=== PATIENT | female | born 1945 | race Caucasian/White ===

== ENCOUNTER 2019-09-26 16:04 | Emergency (ER) | payer MEDICARE ==
[~2019-09-26] VITALS: Ht 167.6 cm; Wt 78.4 kg
[~2019-09-26 16:04] MED LIST: CLIN-5 PO; FOLI1TAB16 PO; IBAN150T21 PO; LETR2.5T23 PO; LEVO75TA7 PO; LISI-600 PO; MELO-102 PO; METO100T7 PO; THI100T PO
[2019-09-26] MEDS ORDERED: IBUP-1986 PO (17:11)
[2019-09-26] MEDS ORDERED: GABA600T13 PO (17:11)
[2019-09-26] MEDS ORDERED: POTA10TA36 PO (17:11)
[2019-09-26] MEDS ORDERED: FURO-150 PO (17:11)
[2019-09-26 17:27] LABS: ALANINE AMINOTRANSFERASE 46 U/L (12-78); ALBUMIN 3.7 G/DL (3.4-5.0); ALBUMIN/GLOBULIN RATIO 1.1 (1.1-1.5); ALKALINE PHOSPHATASE 114 IU/L (46-116); ANION GAP 17 (8-16); ASPARTATE AMINO TRANSFERASE 94 U/L (10-37); BILIRUBIN,TOTAL 0.6 MG/DL (0.1-1.0); BLOOD UREA NITROGEN 11 MG/DL (7-18); CALCIUM 9.1 MG/DL (8.5-10.1); CHLORIDE 101 MMOL/L (99-107); CREATININE 0.92 MG/DL (0.40-0.90); GLUCOSE 76 MG/DL (70-104); SODIUM 140 MMOL/L (135-145); TOTAL CARBON DIOXIDE 21.8 MMOL/L (24-32); TOTAL PROTEIN 7.2 G/DL (6.4-8.2); eGFR 60 ML/MIN
[2019-09-26 17:39] LABS: ACETAMINOPHEN < 2.0 UG/ML (10-30)
[2019-09-26] MEDS ORDERED: thiamine 100mg/ml 2ml inj. IV ONE (17:45)
[2019-09-26] MEDS ORDERED: folic acid 1mg/0.2ml inj IV ONE (17:45)
[2019-09-26] MEDS ORDERED: normal saline 1000ML IV soln IVB ONE (17:45)
[2019-09-26 18:05] LABS: ETHANOL 0.299 GM/DL (0.0-0.010)
[2019-09-26 18:07] LABS: COLOR,URINE YELLOW (Yellow); GLUCOSE, URINE NEGATIVE (Neg); KETONES,URINE NEGATIVE (Neg); LEUKOCYTE ESTERASE ,URINE NEGATIVE (Neg); OCCULT BLOOD,URINE TRACE-INTACT (Neg); PROTEIN,URINE NEGATIVE (Neg); UROBILINOGEN,URINE 0.2 E.U/dL (0.2-1.0)
[2019-09-26] MEDS ORDERED: ondansetron 4mg rapidly disintigrating tab PO ONE (18:10)
[2019-09-26] MEDS ORDERED: HYDROcodone/acetaminophen 5mg/325mg tablet PO ONE (18:10)
[2019-09-26 18:13] LABS: CLARITY,URINE SLIGHTLY CLOUDY (Clear); UA COLLECTION TYPE STRAIGHT CATH
[2019-09-26 18:14] LABS: NITRITES, URINE POSITIVE (Neg)
[2019-09-26 18:15] LABS: BACTERIA,URINE 4+ /HPF (Neg); MUCUS STRANDS NONE SEEN /LPF (Neg); RBC,URINE 0-2 /HPF (0-2); SQUAMOUS EPITHELIAL CELL,UR FEW /LPF (FEW); WBC,URINE 0-4 /HPF (0-4)
[2019-09-26] MEDS ORDERED: IBUP-1984 PO (18:26)
[2019-09-26] MEDS ORDERED: TRAM50TA2 PO (18:26)
[2019-09-26] MEDS ORDERED: NITR100C6 PO (18:26)
[2019-09-26 18:47] LABS: BASOPHILS % (AUTO) 0.5 % (0-1); EOSINOPHILS % (AUTO) 0.7 % (0-6); HEMATOCRIT 37.1 % (35.0-45.0); HEMOGLOBIN 12.6 g/dl (12.0-16.0); LYMPHOCYTES # (AUTO) 1.1 X10'3 (1.1-4.8); LYMPHOCYTES % (AUTO) 16.9 % (21-51); MEAN CORPUSCULAR HEMOGLOBIN 36.3 PG (27.0-31.0); MEAN CORPUSCULAR HGB CONC 33.8 g/dL (33.0-36.5); MEAN CORPUSCULAR VOLUME 107.3 FL (78-98); MEAN PLATELET VOLUME 7.6 FL (7.4-10.4); MONOCYTES # (AUTO) 0.9 X10'3 (0-0.9); MONOCYTES % (AUTO) 14.7 % (2-12); NEUTROPHILS # (AUTO) 4.3 X10'3 (1.8-7.7); NEUTROPHILS % (AUTO) 67.2 % (42-75); PLATELET COUNT 166 X10'3 (140-440); RED BLOOD COUNT 3.46 X10'6 (4.20-5.60); RED CELL DISTRIBUTION WIDTH 14.2 % (11.5-14.5); WHITE BLOOD COUNT 6.4 X10'3 (4.5-11.0)
[2019-09-26 19:37] VITALS: BP 121/61
== END 2019-09-26 19:40 | disposition home or self-care (01) ==
LOC: ER 16:05
DX: S62.92XA Unspecified fracture of left hand, initial encounter for closed fracture (principal); F10.129 Alcohol abuse with intoxication, unspecified; N39.0 Urinary tract infection, site not specified; G62.9 Polyneuropathy, unspecified; R41.0 Disorientation, unspecified; Z85.3 Personal history of malignant neoplasm of breast; Z60.2 Problems related to living alone; Z88.0 Allergy status to penicillin; Z88.2 Allergy status to sulfonamides; Z88.6 Allergy status to analgesic agent; Z79.899 Other long term (current) drug therapy; Y90.0 Blood alcohol level of less than 20 mg/100 ml; W18.39XA Other fall on same level, initial encounter; Y93.89 Activity, other specified; Y92.89 Other specified places as the place of occurrence of the external cause; Y99.8 Other external cause status
CPT/HCPCS: 29125; 36415; 70450; 71045; 73110; 73130; 80053; 80320; 80329; 81001; 82140; 84443; 85025; 87077; 87088; 87186; 96361; 96374; 96375; 99284; J3411; J3490; J7030

== ENCOUNTER 2019-12-20 17:46 | Emergency (ER) | payer MEDICARE ==
[~2019-12-20] VITALS: Ht 167.6 cm; Wt 86.0 kg
[~2019-12-20 17:46] MED LIST changes: -CLIN-5 PO; -FOLI1TAB16 PO; +FURO-150 PO; +GABA600T13 PO; -IBAN150T21 PO; +IBUP-1986 PO; -LETR2.5T23 PO; -MELO-102 PO; +NITR100C6 PO; +POTA10TA36 PO; -THI100T PO
[2019-12-20] MEDS ORDERED: normal saline 1000ML IV soln IVB ONE (18:20)
[2019-12-20 18:39] LABS: BASOPHILS % (AUTO) 0.3 % (0-1); EOSINOPHILS % (AUTO) 0.1 % (0-6); HEMATOCRIT 36.4 % (35.0-45.0); HEMOGLOBIN 12.3 g/dl (12.0-16.0); LYMPHOCYTES # (AUTO) 0.7 X10'3 (1.1-4.8); LYMPHOCYTES % (AUTO) 12.9 % (21-51); MEAN CORPUSCULAR HEMOGLOBIN 34.4 PG (27.0-31.0); MEAN CORPUSCULAR HGB CONC 33.7 g/dL (33.0-36.5); MEAN CORPUSCULAR VOLUME 102.1 FL (78-98); MEAN PLATELET VOLUME 8.2 FL (7.4-10.4); MONOCYTES # (AUTO) 0.7 X10'3 (0-0.9); MONOCYTES % (AUTO) 12.7 % (2-12); PLATELET COUNT 127 X10'3 (140-440); RED BLOOD COUNT 3.56 X10'6 (4.20-5.60); WHITE BLOOD COUNT 5.4 X10'3 (4.5-11.0)
[2019-12-20 18:48] LABS: PARTIAL THROMBOPLASTIN TIME 23 SECONDS (22-32)
[2019-12-20 18:50] LABS: ALANINE AMINOTRANSFERASE 25 U/L (12-78); ALBUMIN 3.7 G/DL (3.4-5.0); ALKALINE PHOSPHATASE 94 IU/L (46-116); ANION GAP 18 (8-16); ASPARTATE AMINO TRANSFERASE 47 U/L (10-37); BILIRUBIN,TOTAL 0.7 MG/DL (0.1-1.0); BLOOD UREA NITROGEN 25 MG/DL (7-18); BUN/CREATININE RATIO 13.6 (6.6-38.0); CALCIUM 10.2 MG/DL (8.5-10.1); CHLORIDE 102 MMOL/L (99-107); CREATININE 1.84 MG/DL (0.40-0.90); ETHANOL < 0.010 GM/DL (0.0-0.010); GLUCOSE 117 MG/DL (70-104); POTASSIUM 3.2 MMOL/L (3.5-5.1); SODIUM 144 MMOL/L (135-145); TOTAL CARBON DIOXIDE 24.1 MMOL/L (24-32); TOTAL PROTEIN 7.3 G/DL (6.4-8.2); eGFR 27 ML/MIN
[2019-12-20] MEDS ORDERED: normal saline 1000ml 1,000 ML IV ONE (20:10)
--- NOTE | 2019-12-20 20:22 | NUR ---
PT TO CT
[2019-12-20] MEDS ORDERED: thiamine 100mg/ml 2ml inj. IV ONE (20:30)
--- NOTE | 2019-12-20 20:38 | NUR ---
PT ASKED IF SHE NEEDED TO VOID AND SHE SAID NOT YET.
[2019-12-20 20:44] LABS: CREATINE KINASE 180 U/L (26-192); TROPONIN I < 0.04 NG/ML (0.0-0.05)
--- NOTE | 2019-12-20 21:43 | NUR ---
TUCKED HER BACK TO BED AFTER SHE GOT UP TO COMMODE. UA COLLECTED.
[2019-12-20 22:01] LABS: CLARITY,URINE SLIGHTLY CLOUDY (Clear); COLOR,URINE YELLOW (Yellow); GLUCOSE, URINE NEGATIVE (Neg); KETONES,URINE 40 mg/dl (Neg); LEUKOCYTE ESTERASE ,URINE TRACE (Neg); NITRITES, URINE POSITIVE (Neg); OCCULT BLOOD,URINE MODERATE (Neg); PH,URINE 6.5 (4.8-8.0); PROTEIN,URINE TRACE mg/dl (Neg)
[2019-12-20 22:06] LABS: UA COLLECTION TYPE CLN CATCH MIDSTREAM
[2019-12-20 22:08] LABS: BACTERIA,URINE 3+ /HPF (Neg); SQUAMOUS EPITHELIAL CELL,UR MODERATE /LPF (FEW); WBC,URINE 30-50 /HPF (0-4)
[2019-12-20] MEDS ORDERED: chlordiazePOXIDE 25mg capsule PO ONE (22:10)
[2019-12-20] MEDS ORDERED: potassium Cl 20 mEq SR tablet PO STA (22:17)
[2019-12-20] MEDS ORDERED: NITR100C6 PO (22:19)
[2019-12-20] MEDS ORDERED: CefTRIAXone/D5W-Rocephin 1gm 50 ML IV ONE (22:20)
[2019-12-20 22:28] LABS: URINE AMPHETAMINE SCREEN NEGATIVE (Neg); URINE BARBITUATE SCREEN NEGATIVE (Neg); URINE BENZODIAZEPINES SCREEN NEGATIVE (Neg); URINE CANNABINOID SCREEN NEGATIVE (Neg); URINE COCAINE SCREEN NEGATIVE (Neg); URINE METHADONE SCREEN NEGATIVE (Neg); URINE OPIATE SCREEN NEGATIVE (Neg); URINE PHENCYCLIDINE SCREEN NEGATIVE (Neg)
--- NOTE | 2019-12-20 22:29 | NUR ---
THE YOUNG LADY THAT WAS HERE EARLIER, SHE SAID SHE LEFT HER PHONE NUMBER IN THE ROOM HOWEVER, I CANNOT FIND IT AND THE PATIENT DOESN'T HAVE HER KEYS AND SHE KNOWS OF NO ONE TO CONTACT. I CALLED EMERGENCY CONTACT NUMBER ON THE DATA SHEET, SON AND LEFT A MESSAGE FOR HIM TO CALL ME.
--- NOTE | 2019-12-20 22:37 | NUR ---
SHAHZAD IS THE GAL, HER NUMBER IS [phone]
--- NOTE | 2019-12-20 22:38 | NUR ---
CALLED AND LEFT MESSAGE/I THINK THE PHONE IS OFF IT WENT IMMEDIATELY OVER TO VM AND DIDN'T EVEN RING.
--- NOTE | 2019-12-20 22:40 | NUR ---
I CALLED THE SON BACK AND HE IS GOING TO TRY TO FIGURE SOMETHING OUT.
--- NOTE | 2019-12-20 23:03 | NUR ---
family on their way be here in 10 minutes.
[2019-12-20 23:10] VITALS: BP 121/60
--- NOTE | 2019-12-25 10:28 | NUR ---
CALLED GOT A HOLD OF PT. SHE STATES SHE USES [facility]. I WILL CALL RX INTO [facility].
--- NOTE | 2019-12-25 10:33 | NUR ---
CALLED IN [facility] PO BID X 7 DAYS TO [facility].
== END 2019-12-20 23:11 | disposition home or self-care (01) ==
LOC: ER 17:47
DX: N39.0 Urinary tract infection, site not specified (principal); G62.9 Polyneuropathy, unspecified; E86.0 Dehydration; F10.10 Alcohol abuse, uncomplicated; Z88.0 Allergy status to penicillin; Z98.890 Other specified postprocedural states; Z88.2 Allergy status to sulfonamides; Z88.6 Allergy status to analgesic agent; Z79.899 Other long term (current) drug therapy; Y90.0 Blood alcohol level of less than 20 mg/100 ml
CPT/HCPCS: 36415; 70450; 71045; 72125; 80053; 80305; 80320; 81001; 82550; 85025; 85610; 85730; 87077; 87088; 87186; 93005; 96361; 96374; 96375; 99285; J0696; J3411; J7030; 84484